=== PATIENT | female | born 1995 | race African-American/Black ===

== ENCOUNTER 2016-10-21 21:31 | Emergency (ER) | payer SELFPAY ==
[2016-10-21 22:00] VITALS: BP 182/119
[2016-10-21] MEDS ORDERED: ALBUTEROL SULFATE 0.083% NEB 2.5 MG/3 ML AMPUL NEB ONE (22:04)
[2016-10-21] MEDS ORDERED: PREDNISONE 20 MG TABLET PO ONE (22:04)
--- NOTE | 2016-10-21 22:04 | ER Document Report ---
ED Medical Screen (RME) - General Stated Complaint: DIFFICULTY BREATHING Notes: 21 yo female with hx/o asthma c/o difficulty breathing x 2 days. using rescue inhaler without relief. no fever. Sat 99% RA. + wheezing bilat. no increased work of breathing. no hx/o HTN, BP noted to be elevated in RME TRAVEL OUTSIDE OF THE [place] IN LAST 30 DAYS: No - Related Data Allergies/Adverse Reactions: No Known Allergies Allergy (Verified 01/01/16 20:36) Past Medical History Pulmonary Medical History: Reports: Hx Asthma - Immunizations Immunizations up to date: Yes Hx Diphtheria, Pertussis, Tetanus Vaccination: Yes Physical Exam - Vital signs Vitals: Temp Pulse Resp BP Pulse Ox 98.3 F 109 H 20 182/119 H 98 10/21/16 21:59 10/21/16 21:59 10/21/16 21:59 10/21/16 21:59 10/21/16 21:59 Course - Vital Signs Vital signs: Temp Pulse Resp BP Pulse Ox 98.3 F 109 H 20 182/119 H 98 10/21/16 21:59 10/21/16 21:59 10/21/16 21:59 10/21/16 21:59 10/21/16 21:59
[2016-10-22] MEDS ORDERED: IPRATROPIUM/ALBUTEROL 0.5-2.5 MG/3 ML AMPUL NEB ONE (02:06)
[2016-10-22] MEDS ORDERED: ALBUTEROL SULFATE 0.083% NEB 2.5 MG/3 ML AMPUL NEB SCH (02:21)
== END 2016-10-22 03:30 | disposition left against medical advice (07) ==
LOC: ER 21:31
DX: J45.909 Unspecified asthma, uncomplicated (principal); R06.00 Dyspnea, unspecified; R03.0 Elevated blood-pressure reading, without diagnosis of hypertension; Z53.20 Procedure and treatment not carried out because of patient's decision for unspecified reasons
CPT/HCPCS: 94640 ×2; 99281; J7512; J7620

== ENCOUNTER 2018-02-18 00:07 | Emergency (ER) | payer SELFPAY ==
[2018-02-18 00:18] VITALS: BP 179/125
[2018-02-18] MEDS ORDERED: IPRATROPIUM/ALBUTEROL 0.5-2.5 MG/3 ML AMPUL NEB ONE (00:42)
[2018-02-18] MEDS ORDERED: ALBUTEROL SULFATE HFA (90 MCG/PUFF) 8 GM MDI (1 MDI/ER DISP) IH ONE (00:43)
--- NOTE | 2018-02-18 00:46 | ER Document Report ---
HPI - HPI Patient complains to provider of: wheezing, asthma exacerbation Pain Level: 4 - REPRODUCTIVE LMP: 02-16-18 Reproductive: DENIES: : Past Medical History - General Information source: Patient - Social History Smoking Status: Never Smoker Frequency of alcohol use: None Drug Abuse: None Lives with: Family Family History: Reviewed & Not Pertinent - Past Medical History Cardiac Medical History: Reports: Hx Hypertension Pulmonary Medical History: Reports: Hx Asthma Renal/ Medical History: Denies: Hx Peritoneal Dialysis Surgical Hx: Negative - Immunizations Immunizations up to date: Yes Hx Diphtheria, Pertussis, Tetanus Vaccination: Yes Vertical Provider Document - CONSTITUTIONAL General Appearance: WD/WN, No Apparent Distress, Obese - INFECTION CONTROL TRAVEL OUTSIDE OF THE [place] IN LAST 30 DAYS: No - HEENT HEENT: Atraumatic, Normal ENT Exam, Normocephalic - NECK Neck: Normal Inspection - RESPIRATORY Respiratory: Breath Sounds Normal, No Respiratory Distress, Wheezing - Faint end expiratory wheeze noted in both lungs, this is very mild, good lung sounds bilaterally, normal auscultation otherwise - CARDIOVASCULAR Cardiovascular: Regular Rate, Regular Rhythm - GI/ABDOMEN Gastrointestinal: Abdomen Soft, Abdomen Non-Tender - BACK Back: Normal Inspection - NEURO Level of Consciousness: Awake, Alert, Appropriate - DERM Integumentary: Warm, Dry, No Rash Course - Re-evaluation Re-evalutation: Patient smiling, well-appearing, talkative. No tachypnea, hypoxia, or signs of distress. Very small amount of wheezing, resolved with DuoNeb treatment. No cough, fever, or suggestive of infection. Suspect mild asthma exacerbation. Discussed chest x-ray and additional workup but this was declined. Providing with spacer, inhaler refill, decision was made not to do steroid treatment because patient is a trying to avoid gaining weight and her flare was so mild. Recommended she take [id number] allergy medication, follow-up with primary care, discussed return precautions, patient states satisfaction and agreement. - Vital Signs Vital signs: Temp Pulse Resp BP Pulse Ox 98.8 F 78 18 179/125 H 98 02/18/18 00:17 02/18/18 00:17 02/18/18 00:17 02/18/18 00:02/18/18 00:17 Discharge - Discharge Clinical Impression: Wheezing Asthma Qualifiers: Asthma severity: unspecified severity Asthma persistence: intermittent Asthma complication type: unspecified Qualified Code(s): J45.20 - Mild intermittent asthma, uncomplicated Condition: Stable Disposition: HOME, SELF-CARE Additional Instructions: You have been provided with a spacer, please use this along with refill of your albuterol as prescribed. I recommend that you take your daily antiallergy medication. Follow-up with your provider for additional management as discussed. Your blood pressure was elevated tonight, continue hydrochlorothiazide and follow-up with primary care for additional monitoring. Return for any concerning or worsening symptoms including cough, difficulty breathing, fever, or any other concerning symptoms. Prescriptions: Albuterol Sulfate [Proair HFA Inhalation Aerosol 8.5 gm MDI] 2 puff IH Q4H PRN # 1 mdi PRN Reason:
== END 2018-02-18 01:32 | disposition home or self-care (01) ==
LOC: ER 00:07
DX: J45.20 Mild intermittent asthma, uncomplicated (principal)
CPT/HCPCS: 94640; 99284; J3490; J7620

== ENCOUNTER 2018-03-19 20:36 | Emergency (ER) | payer SELFPAY ==
[2018-03-19] MEDS ORDERED: DEXAMETHASONE 4 MG TABLET PO ONE (21:17)
[2018-03-19] MEDS ORDERED: IPRATROPIUM/ALBUTEROL 0.5-2.5 MG/3 ML AMPUL NEB ONE (21:17)
[2018-03-19] MEDS ORDERED: ALBUTEROL SULFATE HFA (90 MCG/PUFF) 200 PUFF/8.5 GM MDI IH ONE (22:11)
--- NOTE | 2018-03-19 22:12 | ER Document Report ---
ED General - General Chief Complaint: Breathing Difficulty Stated Complaint: DIFFICULTY BREATHING Time Seen by Provider: 03/19/18 21:16 Notes: Patient is a 23 year old female with a past medical history of morbid obesity and asthma who presents with 24 hours of increased shortness of breath. The patient states that she feels a tightness and feels like she cannot get a deep breath. She states this feels similar to when she has had asthma exacerbations in the past. She states that she has been using her albuterol MDI without a spacer and that this has not been improving her symptoms. Exertion worsens her symptoms. She has not seen her general doctor regarding today's concerns. She denies any associated cough, sputum production, fever or constitutional symptoms. She denies any history of DVT or pulmonary embolus. No pleuritic pain. No use of estrogen. TRAVEL OUTSIDE OF THE [place] IN LAST 30 DAYS: No - Related Data Allergies/Adverse Reactions: No Known Allergies Allergy (Verified 10/21/16 22:03) Past Medical History - General Information source: Patient - Social History Smoking Status: Never Smoker Frequency of alcohol use: Occasional Drug Abuse: None Lives with: Family Family History: Reviewed & Not Pertinent Patient has suicidal ideation: No Patient has homicidal ideation: No - Past Medical History Cardiac Medical History: Reports: Hx Hypertension Pulmonary Medical History: Reports: Hx Asthma Renal/ Medical History: Denies: Hx Peritoneal Dialysis - Immunizations Immunizations up to date: Yes Hx Diphtheria, Pertussis, Tetanus Vaccination: Yes Review of Systems - Review of Systems Notes: Constitutional: Negative for fever. HENT: Negative for sore throat. Eyes: Negative for visual changes. Cardiovascular: Negative for chest pain. Respiratory: Positive for shortness of breath. Gastrointestinal: Negative for abdominal pain, vomiting or diarrhea. Genitourinary: Negative for dysuria. Musculoskeletal: Negative for back pain. Skin: Negative for rash. Neurological: Negative for headaches, weakness or numbness. 10 point ROS negative except as marked above and in HPI. Physical Exam - Vital signs Vitals: Temp Pulse Resp BP Pulse Ox 99.1 F 86 20 172/113 H 97 03/19/18 20:48 03/19/18 20:48 03/19/18 20:48 03/19/18 20:48 03/19/18 20:48 Interpretation: Hypertensive Notes: PHYSICAL EXAMINATION: GENERAL: Well-appearing, well-nourished and in no acute distress. HEAD: Atraumatic, normocephalic. EYES: Pupils equal round and reactive to light, extraocular movements intact, sclera anicteric, conjunctiva are normal. ENT: nares patent, oropharynx clear without exudates. Moist mucous membranes. NECK: Normal range of motion, supple without lymphadenopathy LUNGS: Breath sounds clear to auscultation bilaterally and equal. Faint end expiratory wheezing in all lung nelson HEART: Regular rate and rhythm without murmurs ABDOMEN: Soft, morbidly obese abdomen, nontender, normoactive bowel sounds. No guarding, no rebound. No masses appreciated. EXTREMITIES: Normal range of motion, no pitting or edema. No cyanosis. NEUROLOGICAL: No focal neurological deficits. Moves all extremities spontaneously and on command. PSYCH: Normal mood, normal affect. SKIN: Warm, Dry, normal turgor, no rashes or lesions noted. Course - Re-evaluation Re-evalutation: 03/19/18 22:09 Patient presents with a mild exacerbation of their baseline asthma. Mild wheezing at time of presentation but vitals do not show significant hypoxemia or tachypnea. No retractions. Patient did clinically improve after receiving nebulizers here in the emergency department. Patient able to ambulate without any respiratory distress. Based on patient's overall reassuring assessment, I believe they are stable for outpatient management. I do not suspect an acute alternative pathology at this time based on history and exam including acute pulmonary embolus, ACS, pneumothorax, or aortic dissection. At this time will discharge with return precautions and follow-up recommendations. Verbal discharge instructions given a the bedside and opportunity for questions given. Medication warnings reviewed. Patient is in agreement with this plan and has verbalized understanding of return precautions and the need for primary care follow-up in the next 24-72 hours. - Vital Signs Vital signs: Temp Pulse Resp BP Pulse Ox 98.9 F 90 20 158/104 H 96 03/19/18 22:18 03/19/18 22:18 03/19/18 22:18 03/19/18 22:18 03/19/18 22:18 Discharge - Discharge Clinical Impression: Asthma exacerbation Qualifiers: Asthma severity: mild Asthma persistence: persistent Qualified Code(s): J45.31 - Mild persistent asthma with (acute) exacerbation Condition: Good Disposition: HOME, SELF-CARE Additional Instructions: You were seen for an asthma exacerbation. Your symptoms improved with treatment here in the emergency department. However, it is very important that you return to the emergency department immediately if you began to have worsening difficulty breathing that does not respond to your normal home nebulizers. Please also follow closely with your primary care physician. you should also return to emergency department if you develop fever greater than 101 , persistent cough, persistent vomiting, pass out, or any other symptoms that are concerning to you. Referrals: MARBIN REYES FNP [Primary Care Provider] - Follow up as needed
[2018-03-19 22:18] VITALS: BP 158/104
== END 2018-03-19 22:18 | disposition home or self-care (01) ==
LOC: ER 20:36
DX: J45.31 Mild persistent asthma with (acute) exacerbation (principal); R06.09 Other forms of dyspnea; E66.01 Morbid (severe) obesity due to excess calories; I10 Essential (primary) hypertension; Z68.42 Body mass index [BMI] 45.0-49.9, adult
CPT/HCPCS: 94640; 99284; J3490; J7620

== ENCOUNTER 2018-04-08 21:06 | Emergency (ER) | payer SELFPAY ==
[2018-04-08] MEDS ORDERED: IPRATROPIUM/ALBUTEROL 0.5-2.5 MG/3 ML AMPUL NEB ONE ×2 (21:13→22:53)
[2018-04-08] MEDS ORDERED: PREDNISONE 20 MG TABLET PO ONE (21:13)
[2018-04-08] MEDS: ALBUTEROL SULFATE 0.083% NEB 2.5 MG/3 ML AMPUL NEB SCH ×2 (21:36→22:16)
[2018-04-08] MEDS ORDERED: ALBUTEROL SULFATE 0.083% NEB 2.5 MG/3 ML AMPUL NEB ONE (22:53)
--- NOTE | 2018-04-08 22:58 | ER Document Report ---
ED General - General Chief Complaint: Asthma Exacerbation Stated Complaint: DIFFICULTY BREATHING Time Seen by Provider: 04/08/18 22:53 Mode of Arrival: Ambulatory Information source: Patient Notes: 23-year-old female with hypertension, asthma presents with complaint of shortness of breath, wheezing that has been ongoing for 1 month. Patient states that she has had intermittent flares. She currently does not have any of her asthma medication. She denies any recent illness, cough, fever. She believes that her worsening shortness of breath secondary to the heat. She denies any hospitalizations for her asthma or need for intubation. Upon my exam patient has already received a breathing treatment and reports improvement. TRAVEL OUTSIDE OF THE [place] IN LAST 30 DAYS: No - HPI Onset: Other Onset/Duration: Gradual, Persistent Quality of pain: Other - Tightness Severity: None Associated symptoms: None Exacerbated by: Other Relieved by: Denies Similar symptoms previously: Yes Recently seen / treated by doctor: No - Related Data Allergies/Adverse Reactions: No Known Allergies Allergy (Verified 10/21/16 22:03) Past Medical History - General Information source: Patient, [facility] Records - Social History Smoking Status: Never Smoker Frequency of alcohol use: Occasional Drug Abuse: None Lives with: Family Family History: Reviewed & Not Pertinent Patient has suicidal ideation: No Patient has homicidal ideation: No - Past Medical History Cardiac Medical History: Reports: Hx Hypertension Pulmonary Medical History: Reports: Hx Asthma Denies: Hx Pneumonia Renal/ Medical History: Denies: Hx Peritoneal Dialysis - Immunizations Immunizations up to date: Yes Hx Diphtheria, Pertussis, Tetanus Vaccination: Yes Review of Systems - Review of Systems Notes: REVIEW OF SYSTEMS: CONSTITUTIONAL : Denies fever, chills, or sweats. Denies recent illness. Denies weight loss, recent hospitalizations. EENT: Denies visual changes, eye pain. Denies nasal or sinus congestion or discharge. Denies sore throat, oral lesions, difficulty swallowing. CARDIOVASCULAR: Denies chest pain. Denies palpitations. Denies lower extremity edema. RESPIRATORY: Denies cough, cold, or chest congestion. GASTROINTESTINAL: Denies abdominal pain or distention. Denies nausea, vomiting , or diarrhea. Denies blood in vomitus, stools, or per rectum. Denies black, tarry stools. Denies constipation. GENITOURINARY: Denies difficulty urinating, painful urination, frequency, blood in urine, or vaginal discharge. MUSCULOSKELETAL: Denies back or neck pain or stiffness. Denies joint pain or swelling. SKIN: Denies rash, lesions or sores. HEMATOLOGIC : Denies easy bruising or bleeding. LYMPHATIC: Denies swollen glands. NEUROLOGICAL: Denies confusion or altered mental status. Denies passing out or loss of consciousness. Denies dizziness or lightheadedness. Denies headache. Denies weakness or paralysis. Denies problems difficulty with ambulation, slurred speech. Denies sensory loss, numbness, or tingling. Denies seizures. PSYCHIATRIC: Denies anxiety or stress. Denies depression, suicidal ideation, or homicidal ideation. Denies visual or auditory hallucinations. Physical Exam - Vital signs Vitals: Temp Pulse Resp BP Pulse Ox 98.1 F 87 20 175/112 H 100 04/08/18 21:12 04/08/18 21:12 04/08/18 21:12 04/08/18 21:12 04/08/18 21:12 Interpretation: Hypertensive. No: Hypoxic, Febrile - Notes Notes: PHYSICAL EXAMINATION: GENERAL: Well-appearing, well-nourished and in no acute distress. HEAD: Atraumatic, normocephalic. EYES: Pupils equal round and reactive to light, extraocular movements intact, conjunctiva are normal. ENT: Nares patent, oropharynx clear without exudates. Moist mucous membranes. NECK: Normal range of motion, supple without lymphadenopathy LUNGS: Diffuse wheezing in all lung nelson. No accessory muscle use. Patient is able to speak in full sentences. No respiratory distress HEART: Regular rate and rhythm without murmurs ABDOMEN: Soft, nontender, nondistended abdomen. No guarding, no rebound. No masses appreciated. Female : deferred Musculoskeletal: Normal range of motion, no pitting or edema. No cyanosis. NEUROLOGICAL: Cranial nerves grossly intact. Normal speech, normal gait. Normal sensory, motor exams PSYCH: Normal mood, normal affect. SKIN: Warm, Dry, normal turgor, no rashes or lesions noted. Course - Re-evaluation Re-evalutation: 04/09/18 17:36 23-year-old female with hypertension, asthma presents with complaint of shortness of breath, wheezing that has been ongoing for 1 month. Patient states that she has had intermittent flares. She currently does not have any of her asthma medication. She denies any recent illness, cough, fever. She believes that her worsening shortness of breath secondary to the heat. She denies any hospitalizations for her asthma or need for intubation. Upon my exam patient has already received a breathing treatment and reports improvement. Patient was seen by myself upon arrival. Vital signs were reviewed. Patient is afebrile, normotensive and not hypoxic. Patient does not appear toxic or dehydrated. They are in no acute distress. Previous medical records and nursing notes reviewed. Significant findings include with diffuse wheezing. Patient was provided breathing treatments, prednisone. She was also provided an MDI for home-going. On reevaluation wheezing has improved. Patient provided the opportunity to ask questions, and express concerns. Discharge instructions discussed. Patient is agreeable with discharge home. Return indications explained and discussed with the patient who displays understanding. Patient encouraged to return to the emergency department immediately with any concerns. - Vital Signs Vital signs: Temp Pulse Resp BP Pulse Ox 99.2 F 109 H 16 143/89 H 95 04/09/18 00:30 04/09/18 00:30 04/09/18 00:30 04/09/18 00:30 04/09/18 00:30 Discharge - Discharge Clinical Impression: Asthma exacerbation Qualifiers: Asthma severity: mild Asthma persistence: intermittent Qualified Code(s): J45.21 - Mild intermittent asthma with (acute) exacerbation Condition: Good Disposition: HOME, SELF-CARE Instructions: Asthma ([facility]) Additional Instructions: Follow up with your physician tomorrow for further care or return to the ED IMMEDIATELY if symptoms worsen or new concerns occur. If you cannot afford to follow up with your primary care physician a list of low cost clinics have been provided at the end of your discharge papers as well. Prescriptions: Albuterol Sulfate [Albuterol Sulfate 2.5mg/3 mL] 2.5 mg IH Q4H PRN #25 ml PRN Reason: Shortness Of Breath Prednisone [Deltasone 20 mg Tablet] 3 tab PO DAILY 5 Days #15 tablet Forms: Elevated Blood Pressure
[2018-04-08] MEDS ORDERED: ALBUTEROL SULFATE HFA (90 MCG/PUFF) 8 GM MDI (1 MDI/ER DISP) IH PRN (23:59)
[2018-04-09 00:33] VITALS: BP 143/89
== END 2018-04-09 00:32 | disposition home or self-care (01) ==
LOC: ER 21:06
DX: J45.21 Mild intermittent asthma with (acute) exacerbation (principal); I10 Essential (primary) hypertension; R06.02 Shortness of breath
CPT/HCPCS: 94640 ×2; 99284; J7512; J3490; J7620

== ENCOUNTER 2018-05-04 14:37 | Emergency (ER) | payer SELFPAY ==
[2018-05-04] MEDS ORDERED: IPRATROPIUM/ALBUTEROL 0.5-2.5 MG/3 ML AMPUL NEB ONE ×2 (15:40→16:27)
[2018-05-04] MEDS ORDERED: PREDNISONE 20 MG TABLET PO ONE (15:40)
--- NOTE | 2018-05-04 15:41 | ER Document Report ---
ED Medical Screen (RME) - General Chief Complaint: Breathing Difficulty Stated Complaint: DIFFICULTY BREATHING Time Seen by Provider: 05/04/18 15:30 Mode of Arrival: Ambulatory Information source: Patient Notes: This is a 23-year-old female that presents to the emergency room with wheezing, shortness of breath and chest tightness. She does have a history of asthma and ran out of her asthma medicine a few weeks ago. She called up her primary care physician at [facility] and was referred to the emergency room. Her only other medicines are hydrochlorothiazide. TRAVEL OUTSIDE OF THE [place] IN LAST 30 DAYS: No - HPI Onset: Yesterday Onset/Duration: Gradual Quality of pain: No pain Severity: None Associated Symptoms: Shortness of breath. denies: Chest pain, Fever Exacerbated by: Denies Relieved by: Denies Similar symptoms previously: Yes Recently seen / treated by doctor: Yes - Related Data Smoking: Non-smoker Frequency of alcohol use: None Drug Abuse: None Allergies/Adverse Reactions: No Known Allergies Allergy (Verified 05/04/18 14:38) Past Medical History - General Information source: Patient - Social History Cigarette use (# per day): No Chew tobacco use (# tins/day): No Frequency of alcohol use: Occasional Drug Abuse: None Lives with: Family Family history: None - Past Medical History Cardiac Medical History: Reports: Hx Hypertension Pulmonary Medical History: Reports: Hx Asthma Denies: Hx Pneumonia Renal/ Medical History: Denies: Hx Peritoneal Dialysis Surgical Hx: Negative - Immunizations Immunizations up to date: Yes Hx Diphtheria, Pertussis, Tetanus Vaccination: Yes Review of Systems - Review of Systems Constitutional: denies: Chills, Fever EENT: No symptoms reported Cardiovascular: denies: Chest pain, Palpitations, Syncope Respiratory: Short of breath, Wheezing Gastrointestinal: No symptoms reported Genitourinary: No symptoms reported Female Genitourinary: No symptoms reported Musculoskeletal: No symptoms reported Skin: No symptoms reported Hematologic/Lymphatic: No symptoms reported Neurological/Psychological: No symptoms reported Physical Exam - Vital signs Vitals: Temp Pulse Resp BP Pulse Ox 99.2 F 103 H 18 147/81 H 96 05/04/18 14:42 05/04/18 14:42 05/04/18 14:42 05/04/18 14:42 05/04/18 14:42 Notes: Physical exam: GENERAL: A 3-year-old female, alert and oriented 3, no acute distress HEAD: Atraumatic, normocephalic. EYES: Pupils equal round and reactive to light, extraocular movements intact, sclera anicteric, conjunctiva are normal. ENT: TMs normal, nares patent, oropharynx clear without exudates. Moist mucous membranes. NECK: Normal range of motion, supple without obvious mass or JVD. LUNGS: Bilateral wheezing expiratory greater than inspiratory HEART: Regular rate and rhythm without murmurs, rubs or gallops. ABDOMEN: Soft, normoactive bowel sounds. No tenderness to palpation. No guarding, no rebound. No masses appreciated. EXTREMITIES: Normal range of motion, no pitting or edema. No clubbing or cyanosis. NEUROLOGICAL: Cranial nerves II through XII grossly intact. Normal speech, moving all extremities. PSYCH: Normal mood, normal affect. SKIN: Warm, Dry, normal turgor, no rashes or lesions noted. Course - Re-evaluation Re-evalutation: 05/04/18 18:27 Patient did have improvement of the breath sounds on physical exam after the nebulizer treatment. She was given steroids. She was given scripts for albuterol nebulizer, Symbicort and prednisone. She was given an inhaler as well. - Vital Signs Vital signs: Temp Pulse Resp BP Pulse Ox 98.6 F 74 19 132/74 H 96 05/04/18 17:12 05/04/18 17:12 05/04/18 17:12 05/04/18 17:12 05/04/18 17:12 Doctor's Discharge - Discharge Clinical Impression: Asthma exacerbation Condition: Stable Disposition: HOME, SELF-CARE Instructions: Asthma ([facility]) Additional Instructions: Recommendations: Rest, drink plenty of fluids, start the prednisone tomorrow (you were given today's dose in the ER). Use the albuterol inhaler: 2 puffs every 4-6 hours for shortness of breath. You can use the albuterol via nebulizer as well. Use the Symbicort as prescribed. Follow-up with your primary care doctor in the next few days. Return to the emergency room for worsening shortness of breath, worsening wheezing or concerns or getting worse. Prescriptions: Albuterol Sulfate [Albuterol Sulfate 2.5mg/3 mL] 2.5 mg IH Q4 PRN #20 ml PRN Reason: Budesonide/Formoterol Fumarate [Symbicort 160-4.5 Mcg Inhaler] 10.2 gm IH BID # 1 [email or web address] Prednisone [Deltasone 20 mg Tablet] 3 tab PO DAILY 4 Days #12 tablet Forms: Return to Work
[2018-05-04] MEDS ORDERED: ALBUTEROL SULFATE HFA (90 MCG/PUFF) 8 GM MDI (1 MDI/ER DISP) IH ONE (16:28)
[2018-05-04 17:12] VITALS: BP 132/74
== END 2018-05-04 17:12 | disposition home or self-care (01) ==
LOC: ER 14:37
DX: J45.901 Unspecified asthma with (acute) exacerbation (principal); R07.9 Chest pain, unspecified; I10 Essential (primary) hypertension
CPT/HCPCS: 94640; 99284; J7512; J3490; J7620

== ENCOUNTER 2018-05-08 23:59 | Emergency (ER) | payer SELFPAY ==
[2018-05-09 00:16] VITALS: BP 168/112
[2018-05-09] MEDS ORDERED: IPRATROPIUM/ALBUTEROL 0.5-2.5 MG/3 ML AMPUL NEB ONE ×2 (00:25→00:50)
[2018-05-09] MEDS ORDERED: METHYLPREDNISOLONE INJ 125 MG/2 ML SDV IV ONE (00:25)
[2018-05-09] MEDS ORDERED: MAGNESIUM SULFATE/D5W 1 GM/100 ML RTUPB IV SCH (00:30)
--- NOTE | 2018-05-09 00:31 | ER Document Report ---
ED Respiratory Problem - General Mode of Arrival: Ambulatory Information source: Patient TRAVEL OUTSIDE OF THE [place] IN LAST 30 DAYS: No <JAY LEWIS - Last Filed: 05/09/18 00:53> <YUN CAGLE - Last Filed: 05/09/18 02:30> - General Chief Complaint: Breathing Difficulty Stated Complaint: SHORTNESS OF BREATH Time Seen by Provider: 05/09/18 00:20 Notes: 23-year-old female that presents to the emergency department today with complaints of asthma exacerbation. Patient states her shortness of breath began today. Patient was seen in this emergency department 5 days ago for asthma exacerbation. Patient was discharged home on steroids however she "lost the prescription". Patient also mentions that she has run out of her Symbicort recently and wishes to have this refilled. Patient states she has a nonproductive cough but denies any fevers. (JAY LEWIS) - Related Data Allergies/Adverse Reactions: No Known Allergies Allergy (Verified 05/04/18 14:38) Past Medical History - General Information source: Patient - Social History Smoking Status: Never Smoker Cigarette use (# per day): No Frequency of alcohol use: None Drug Abuse: None Lives with: Family Family History: Reviewed & Not Pertinent - Past Medical History Cardiac Medical History: Reports: Hx Hypertension Pulmonary Medical History: Reports: Hx Asthma Surgical Hx: Negative - Immunizations Immunizations up to date: Yes Hx Diphtheria, Pertussis, Tetanus Vaccination: Yes <AJY LEWIS - Last Filed: 05/09/18 00:53> Review of Systems - Review of Systems Constitutional: denies: Fever EENT: No symptoms reported Cardiovascular: No symptoms reported Respiratory: See HPI, Cough - non-productive, Short of breath, Wheezing Gastrointestinal: No symptoms reported Genitourinary: No symptoms reported Female Genitourinary: No symptoms reported Musculoskeletal: No symptoms reported Skin: No symptoms reported Hematologic/Lymphatic: No symptoms reported Neurological/Psychological: No symptoms reported -: Yes All other systems reviewed and negative <JAY LEWIS - Last Filed: 05/09/18 00:53> Physical Exam <JAY LEWIS - Last Filed: 05/09/18 00:53> <YUN CAGLE - Last Filed: 05/09/18 02:30> - Vital signs Vitals: Temp Pulse Resp BP Pulse Ox 99.4 F 101 H 18 168/112 H 98 05/09/18 00:10 05/09/18 00:10 05/09/18 00:10 05/09/18 00:10 05/09/18 00:10 - Notes Notes: Physical Exam: General: Alert, mild distress, morbidly obese. HEENT: Normocephalic. Atraumatic. PERRL. Extraocular movements intact. Oropharynx clear. Neck: Supple. Non-tender. Respiratory: Mild respiratory distress. Decreased air movement throughout, wheezing throughout bilaterally, tachypneic. Cardiovascular: Regular rate and rhythm. Abdominal: Morbidly obese. Non-tender. No distension. Normal Bowel Sounds. Back: Non-tender. No deformity or step off. Extremities: Moves all four extremities. Upper extremities: Normal inspection. Normal ROM. Lower extremities: Normal inspection. No edema. Normal ROM. Neurological: Normal cognition. AAOx4. Normal speech. Psychological: Normal affect. Normal Mood. Skin: Warm. Dry. Normal color. (JAY LEWIS) Course <JAY LEWIS - Last Filed: 05/09/18 00:53> <YUN CAGLE - Last Filed: 05/09/18 02:30> - Re-evaluation Re-evalutation: 05/09/18 00:30 Patient does not want bloodwork or IV. Will take Prednisone po. 05/09/18 00:52 Respiratory status improving. 05/09/18 01:30 Patient is a 23-year-old female who presents with difficulty breathing. Patient has a history of asthma. Patient was seen a few days ago and did not fill prednisone prescription because she states that she lost it. She is refusing IV and does not want magnesium. Patient will be discharged home. She is agreeable to taking prednisone here. No acute findings on chest x-ray. Wheezing resolved after nebulizer treatments. Prescriptions have been sent directly to her pharmacy so she cannot lose them again. Of note, Symbicort has also been refilled. Patient is grateful for care. When ambulating, oxygenation remained above 95% and no further respiratory distress. Stable for discharge. Return if any worsening or concerning symptoms. Follow-up with her doctor this week. Understands agrees with plan. (YUN CAGLE) - Vital Signs Vital signs: Temp Pulse Resp BP Pulse Ox 99.4 F 101 H 15 168/112 H 99 05/09/18 00:10 05/09/18 00:10 05/09/18 01:02 05/09/18 00:10 05/09/18 01:02 Critical Care Note - Critical Care Note Total time excluding time spent on procedures (mins): 15 - Evaluation and management of respiratory distress, management of asthma exacerbation, multiple re-evaluations, counseling patient <YUN CAGLE - Last Filed: 05/09/18 02:30> Discharge <JAY LEWIS - Last Filed: 05/09/18 00:53> <YUN CAGLE - Last Filed: 05/09/18 02:30> - Discharge Clinical Impression: Asthma exacerbation Qualifiers: Asthma severity: mild Asthma persistence: unspecified Qualified Code(s): J45.901 - Unspecified asthma with (acute) exacerbation Condition: Stable Disposition: HOME, SELF-CARE Instructions: Asthma ([facility]) Additional Instructions: Please follow-up with your doctor this week regarding your asthma. Prescriptions: Budesonide/Formoterol Fumarate [Symbicort 160-4.5 Mcg Inhaler] 10.2 gm IH BID # 1 [id number].aer.ad Ipratropium/Albuterol Sulfate [Duoneb 3 ml Ampul] 3 ml NEB [id number] PRN #30 vial.neb PRN Reason: Prednisone 40 mg PO DAILY #8 tablet Forms: Return to Work Scribe Attestation: 05/09/18 02:29 I personally performed the services described in the documentation, reviewed and edited the documentation which was dictated to the scribe in my presence, and it accurately records my words and actions. (YUN CAGLE) Scribe Documentation - Scribe Written by Shyla:: Shyla Link, 05/09/2018 0031 acting as scribe for :: Joy <JAY LEWIS - Last Filed: 05/09/18 00:53>
[2018-05-09] MEDS ORDERED: PREDNISONE 20 MG TABLET PO ONE (00:35)
--- NOTE | 2018-05-09 01:17 | RADIOLOGY REPORT (SQ) ---
EXAM DESCRIPTION: XR CHEST 1 VIEW COMPLETED DATE/TME: 05/09/2018 00:00 CLINICAL HISTORY: 23 years, Female, SOB COMPARISON: 01/01/2016 NUMBER OF VIEWS: One TECHNIQUE: Single view chest LIMITATIONS: None. FINDINGS: Cardiac size and mediastinal contour are within normal limits for portable technique. There is some increased density over the lower lung field secondary to breast artifact. No pneumothorax. No pleural fluid or consolidation. IMPRESSION: No evidence of acute process 2010 [employer]- All Rights Reserved
== END 2018-05-09 01:40 | disposition home or self-care (01) ==
LOC: ER 23:59
DX: J45.901 Unspecified asthma with (acute) exacerbation (principal); T38.0X6A Underdosing of glucocorticoids and synthetic analogues, initial encounter; Z91.128 Patient's intentional underdosing of medication regimen for other reason; Z91.14 Patient's other noncompliance with medication regimen; R06.02 Shortness of breath; R05 Cough; I10 Essential (primary) hypertension; E66.01 Morbid (severe) obesity due to excess calories; Z68.42 Body mass index [BMI] 45.0-49.9, adult
CPT/HCPCS: 94640 ×2; 99285; 71045; J7512; J7620

== ENCOUNTER 2019-07-27 20:52 | Emergency (ER) | payer OTHER ==
--- NOTE | 2019-07-27 23:38 | ER Document Report ---
ED Medical Screen (RME) - General Chief Complaint: OB Problem (<20wks) Stated Complaint: DECREASED MOVEMENT Time Seen by Provider: 07/27/19 23:36 TRAVEL OUTSIDE OF THE [place] IN LAST 30 DAYS: No - HPI Notes: 07/27/19 23:37 Patient is a 24-year-old female who is 19 weeks 5 days and considered "high risk" with her elevated blood pressure and is Sebasti[place] scheduled 2 weeks early for a presents complaining of decreased movement over the past couple days with lower pelvic mild pains and low back pain. She has not had any vaginal bleeding, odor, or discharge. She is otherwise feeling well. She is eating and drinking without difficulty. She is urinating normally. Denies fever, chest pain, shortness of breath. I have treated and performed a rapid initial assessment of this patient. A comprehensive ED assessment and evaluation of the patient, analysis of test results and completion of medical decision making process will be conducted by additional ED providers. I did review with our charge nurse. L&D will not accept <20wks. We will perform initial work up here first. PHYSICAL EXAMINATION: GENERAL: Well-appearing, well-nourished and in no acute distress. A&Ox4. Answers questions appropriately. - Related Data Allergies/Adverse Reactions: No Known Allergies Allergy (Verified 05/04/18 14:38) Past Medical History - Social History Family history: None - Past Medical History Cardiac Medical History: Reports: Hx Hypertension Pulmonary Medical History: Reports: Hx Asthma Renal/ Medical History: Denies: Hx Peritoneal Dialysis - Immunizations Immunizations up to date: Yes Hx Diphtheria, Pertussis, Tetanus Vaccination: Yes Physical Exam - Vital signs Vitals: Temp Pulse Resp BP Pulse Ox 98.5 F 82 18 153/96 H 100 07/27/19 21:32 07/27/19 21:32 07/27/19 21:32 07/27/19 21:32 07/27/19 21:32 Course - Vital Signs Vital signs: Temp Pulse Resp BP Pulse Ox 98.5 F 82 18 153/96 H 100 07/27/19 21:32 07/27/19 21:32 07/27/19 21:32 07/27/19 21:32 07/27/19 21:32
--- NOTE | 2019-07-28 00:29 | RADIOLOGY REPORT (SQ) ---
EXAM DESCRIPTION: [facility]: US LIMITED CLINICAL HISTORY: 24 years Female; dec movement (eveline. 19wk5d), pelvic pain TECHNIQUE: Transabdominal obstetrical ultrasound was performed. COMPARISON: None. FINDINGS: Number of fetuses: Single position: Vertex BPD: 4.65 cm, 20 weeks 0 days HC: 17.61 cm, 20 weeks 1 day AC: 14.77 cm, 20 weeks 0 days FL: 3.26 cm, 20 weeks 1 day EFW: 333 g HR: 152 BPM Anatomy: Grossly normal on this limited exam Amniotic fluid: LVP 5 cm, adequate Cervix: 3.4 cm, closed Placenta: Posterior IMPRESSION: 1. Single viable IUP. No acute findings. 2. EGA 20 weeks 1 day, EDC 12/13/2019
[2019-07-28 00:56] LABS: APPEARANCE,URINE SLIGHTLY-CLOUDY; BILIRUBIN,URINE NEGATIVE (NEGATIVE); COLOR,URINE YELLOW; GLUCOSE, URINE NEGATIVE (NEGATIVE); KETONES,URINE NEGATIVE (NEGATIVE); PROTEIN,URINE NEGATIVE (NEGATIVE); URINE SPECIFIC GRAVITY 1.018; UROBILINOGEN,URINE NEGATIVE mg/dL (<2.0)
--- NOTE | 2019-07-28 02:28 | ER Document Report ---
ED General - General Chief Complaint: OB Problem (<20wks) Stated Complaint: DECREASED MOVEMENT Time Seen by Provider: 07/27/19 23:36 Notes: RME NOTE: Patient is a 24-year-old female who is 19 weeks 5 days and considered "high risk" with her elevated blood pressure and is Sebastián scheduled 2 weeks early for a presents complaining of decreased movement over the past couple days with lower pelvic mild pains and low back pain. She has not had any vaginal bleeding, odor, or discharge. She is otherwise feeling well. She is eating and drinking without difficulty. She is urinating normally. Denies fever, chest pain, shortness of breath. MY HPI: 24 y/o presents to the ED as she has not felt her baby move in the last couple of days. States she also has intermittent pelvic pain and lower back pain. Patient's denying any pain upon my assessment. States she feels "fine now." Patient's denying any fevers, nausea, vomiting, vaginal discharge to include bleeding. Patient voices concern again because she has not felt the baby move. TRAVEL OUTSIDE OF THE [place] IN LAST 30 DAYS: No - Related Data Allergies/Adverse Reactions: No Known Allergies Allergy (Verified 05/04/18 14:38) Home Medications: vitamins Past Medical History - General Information source: Patient - Social History Smoking Status: Never Smoker Family History: Reviewed & Not Pertinent Patient has suicidal ideation: No Patient has homicidal ideation: No - Past Medical History Cardiac Medical History: Reports: Hx Hypertension Pulmonary Medical History: Reports: Hx Asthma Renal/ Medical History: Denies: Hx Peritoneal Dialysis - Immunizations Immunizations up to date: Yes Hx Diphtheria, Pertussis, Tetanus Vaccination: Yes Review of Systems - Review of Systems Constitutional: denies: Fever EENT: No symptoms reported Cardiovascular: No symptoms reported Respiratory: No symptoms reported Gastrointestinal: See HPI Genitourinary: See HPI Female Genitourinary: See HPI Musculoskeletal: No symptoms reported Skin: No symptoms reported Hematologic/Lymphatic: No symptoms reported Neurological/Psychological: No symptoms reported Physical Exam - Vital signs Vitals: Temp Pulse Resp BP Pulse Ox 98.5 F 82 18 153/96 H 100 07/27/19 21:32 07/27/19 21:32 07/27/19 21:32 07/27/19 21:32 07/27/19 21:32 - Notes Notes: GENERAL: Alert, interacts well. No acute distress. HEAD: Normocephalic, atraumatic. EYES: Pupils equal, round, and reactive to light. Extraocular movements intact. ENT: Oral mucosa moist, tongue midline. NECK: Full range of motion. Supple. Trachea midline. LUNGS: Clear to auscultation bilaterally, no wheezes, rales, or rhonchi. No respiratory distress. HEART: Regular rate and rhythm. No murmur ABDOMEN: Morbidly obese, soft, non-tender. Non-distended. Bowel sounds present in all 4 quadrants. EXTREMITIES: Moves all 4 extremities spontaneously. No edema, normal radial and dorsalis pedis pulses bilaterally. No cyanosis. BACK: no cervical, thoracic, lumbar midline tenderness. No saddle anesthesia, normal distal neurovascular exam. No CVA tenderness noted bilaterally. NEUROLOGICAL: Alert and oriented x3. Normal speech. cranial nerves II through XII grossly intact PSYCH: Normal affect, normal mood. SKIN: Warm, dry, normal turgor. No rashes or lesions noted. Course - Re-evaluation Re-evalutation: 07/28/19 02:26 Laboratory 07/28/19 00:28 Urine Color YELLOW Urine Appearance SLIGHTLY-CLOUDY Urine pH 6.0 Ur Specific [place] 1.018 Urine Protein NEGATIVE Urine Glucose (UA) NEGATIVE Urine Ketones NEGATIVE Urine Blood NEGATIVE Urine Nitrite (Reflex) NEGATIVE Urine Bilirubin NEGATIVE Urine Urobilinogen NEGATIVE Leukocyte Esterase Rfl NEGATIVE Urine RBC (Auto) 1 Urine Bacteria (Auto) TRACE Urine WBC (Reflex) 1 Squamous Epi Cells Auto 2 Urine Mucus (Auto) RARE Urine Ascorbic Acid NEGATIVE Obstetrics Ultrasound 07/27/19 23:36 IMPRESSION: 1. Single viable IUP. No acute findings. 2. EGA 20 weeks 1 day, EDC 12/13/2019 I discussed with patient at bedside results of her ultrasound. Patient does voice upon my assessment she does feel better. She is denying any abdominal discomfort at this time. I discussed close follow-up with primary care provider and [employer] AND BEVERAGE ASSISTANT MANAGER. Patient stable for discharge. - Vital Signs Vital signs: Temp Pulse Resp BP Pulse Ox 98.5 F 82 18 153/96 H 100 07/27/19 21:32 07/27/19 21:32 07/27/19 21:32 07/27/19 21:32 07/27/19 21:32 Discharge - Discharge Clinical Impression: Abdominal pain affecting Condition: Stable Disposition: HOME, SELF-CARE Instructions: Pelvic Pain in and Round Ligament Pain ([facility]) Additional Instructions: As we discussed you have been seen and treated in the emergency department for concern that your baby is not moving. Ultrasound results show baby is fine. Please follow-up with your FOOD AND BEVERAGE ASSISTANT MANAGER in the next 12 to 24 hours. Return to the emergency department for any concerns. Forms: Return to Work
[2019-07-28 06:28] VITALS: BP 136/81
== END 2019-07-28 02:38 | disposition home or self-care (01) ==
LOC: ER 20:52
DX: O26.892 Other specified pregnancy related conditions, second trimester (principal); R10.2 Pelvic and perineal pain; O36.8120 Decreased fetal movements, second trimester, not applicable or unspecified; O99.89 Other specified diseases and conditions complicating pregnancy, childbirth and the puerperium; M54.5 Low back pain; O16.2 Unspecified maternal hypertension, second trimester; O99.512 Diseases of the respiratory system complicating pregnancy, second trimester; J45.909 Unspecified asthma, uncomplicated; Z3A.19 19 weeks gestation of pregnancy; Z79.899 Other long term (current) drug therapy
CPT/HCPCS: 76815; 81001

== ENCOUNTER 2020-02-17 18:21 | Emergency (ER) | payer OTHER, MEDICAID ==
[2020-02-17 18:34] VITALS: BP 155/132
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
== END 2020-02-17 19:13 | disposition home or self-care (01) ==
LOC: ER 18:21
DX: S39.012A Strain of muscle, fascia and tendon of lower back, initial encounter (principal); V49.40XA Driver injured in collision with unspecified motor vehicles in traffic accident, initial encounter; I10 Essential (primary) hypertension
CPT/HCPCS: 99283

== ENCOUNTER 2020-03-05 18:18 | Emergency (ER) | payer OTHER, MEDICAID ==
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
[2020-03-05 19:01] VITALS: BP 191/115
== END 2020-03-05 19:10 | disposition home or self-care (01) ==
LOC: ER 18:18
DX: S16.1XXA Strain of muscle, fascia and tendon at neck level, initial encounter (principal); V49.50XA Passenger injured in collision with unspecified motor vehicles in traffic accident, initial encounter; I10 Essential (primary) hypertension; J45.909 Unspecified asthma, uncomplicated
CPT/HCPCS: 99283